=== PATIENT | female | born 1955 | race Caucasian/White ===

== ENCOUNTER → 2018-06-11 | Outpatient (CLI) | payer OTHER ==
[2018-06-11 12:14] LABS: ABSOLUTE BASOPHILS # (AUTO) 0.1 10^3/uL (0.0-0.2); ABSOLUTE LYMPHOCYTES (AUTO) 1.6 10^3/uL (0.5-4.7); ABSOLUTE MONOCYTES (AUTO) 0.4 10^3/uL (0.1-1.4); ABSOLUTE NEUT (AUTO) 3.5 10^3/uL (1.7-8.2); BASOPHILS % (AUTO) 1.2 % (0-2); EOSINOPHILS % (AUTO) 0.6 % (0-6); HEMATOCRIT 35.8 % (36.0-47.0); HEMOGLOBIN 12.1 g/dL (12.0-15.5); LYMPHOCYTES % (AUTO) 28.5 % (13-45); MEAN CORPUSCULAR HEMOGLOBIN 32.4 pg (27.0-33.4); MEAN CORPUSCULAR HGB CONC 33.9 g/dL (32.0-36.0); MEAN CORPUSCULAR VOLUME 96 fl (80-97); MONOCYTES % (AUTO) 6.4 % (3-13); PLATELET COUNT 290 10^3/uL (150-450); RED BLOOD COUNT 3.74 10^6/uL (3.72-5.28); RED CELL DISTRIBUTION WIDTH 12.2 % (11.5-14.0); SEGMENTED NEUTROPHILS % (AUTO) 63.3 % (42-78); TOTAL CELLS COUNTED % (AUTO) 100 %; WHITE BLOOD COUNT 5.5 10^3/uL (4.0-10.5)
[2018-06-11 12:36] LABS: ALANINE AMINOTRANSFERASE 19 U/L (9-52); ALBUMIN 4.1 g/dL (3.5-5.0); ALKALINE PHOSPHATASE 65 U/L (38-126); ANION GAP 9 (5-19); ASPARTATE AMINO TRANSFERASE 24 U/L (14-36); BILIRUBIN,DIRECT 0.2 mg/dL (0.0-0.4); BILIRUBIN,TOTAL 0.2 mg/dL (0.2-1.3); BLOOD UREA NITROGEN 20 mg/dL (7-20); CALCIUM 10.4 mg/dL (8.4-10.2); CARBON DIOXIDE 30 mmol/L (22-30); CHLORIDE 99 mmol/L (98-107); CHOLESTEROL 257.38 mg/dL (0-200); GLUCOSE 81 mg/dL (75-110); POTASSIUM 4.8 mmol/L (3.6-5.0); SODIUM 138.3 mmol/L (137-145); TOTAL PROTEIN 7.3 g/dL (6.3-8.2); TRIGLYCERIDES 87 mg/dL (<150)
[2018-06-11 12:47] LABS: DIRECT LDL 139 mg/dL (<100)
== END ==
LOC: CCC 10:42
DX: Z13.220 Encounter for screening for lipoid disorders (principal)
CPT/HCPCS: 36415; 80053; 80061; 83036; 84443; 85025

== ENCOUNTER → 2020-03-10 | Outpatient (CLI) | payer OTHER ==
--- NOTE | 2020-03-10 15:08 | RADIOLOGY REPORT (SQ) ---
EXAM DESCRIPTION: RIBS BILATERAL W/PA CXR IMAGES COMPLETED DATE/TIME: 03/10/2020 2:56 pm REASON FOR STUDY: RIB PAIN R07.81 PLEURODYNIA COMPARISON: None. TECHNIQUE: Frontal view of the chest and additional views of the right and left ribs acquired. NUMBER OF VIEWS: 8 views LIMITATIONS: None. FINDINGS: FRONTAL CXR: No pneumothorax. No pleural effusion. No atelectasis or infiltrates. RIBS: Minimally displaced lateral left 9th and 10th rib fractures. OTHER: Calcified breast prostheses. IMPRESSION: Minimally displaced left lateral 9th and 10th rib fractures. No pneumothorax. COMMENT: SITE OF TRAUMA/COMPLAINT MARKED/STAMP COMPLETED: NO. TECHNICAL DOCUMENTATION: JOB ID: [id number] 2010 [employer]- All Rights Reserved Reading location - IP/workstation name: [email or web address]
== END ==
LOC: RAD 14:21
DX: S22.42XA Multiple fractures of ribs, left side, initial encounter for closed fracture (principal); X58.XXXA Exposure to other specified factors, initial encounter
CPT/HCPCS: 71111